=== PATIENT | female | born 1990 | race Caucasian/White ===

== ENCOUNTER 2021-08-16 09:41 | Emergency (ER) | payer MEDICAID ==
[~2021-08-16] VITALS: Ht 157.5 cm; Wt 60.0 kg
[2021-08-16 09:44] VITALS: BP 173/94
== END 2021-08-16 16:57 | disposition left against medical advice (07) ==
LOC: ER 09:41
DX: R19.7 Diarrhea, unspecified (principal); R00.0 Tachycardia, unspecified; R03.0 Elevated blood-pressure reading, without diagnosis of hypertension
CPT/HCPCS: 81025; 99282